=== PATIENT | male | born 1990 | race Caucasian/White ===

== ENCOUNTER 2020-01-10 11:52 | Outpatient (CLI) | payer SELFPAY ==
--- NOTE | 2020-01-10 13:03 | PC.NURSE ---
1205 Patient here for Covid pre op testing. Patient verified via name and date of . Full PPE in place to include goggles, gloves, gown and N95 mask. Specimen collected, labeled and taken to lab. Patient tolerated procedure well.
[2020-01-11 13:50] LABS: Coronavirus Lab Test PTC Negative
== END 2020-01-10 11:53 | disposition home or self-care (01) ==
LOC: LAB 11:59
PROVIDERS: PCP Electrodiagnostic Medicine; Visit Provider Emergency Medicine
DX: Z01.812 Encounter for preprocedural laboratory examination (principal)
CPT/HCPCS: 87635

== ENCOUNTER → 2020-11-02 18:31 | Outpatient (BNVA) | payer SELFPAY | PROVIDERS: PCP Electrodiagnostic Medicine; Visit Provider Nurse Practitioner | DX: J02.0 Streptococcal pharyngitis (principal) | CPT/HCPCS: 87880 ==

== ENCOUNTER → 2022-09-16 09:07 | Outpatient (BNVA) | payer BC, SELFPAY | PROVIDERS: PCP Family Medicine; Visit Provider Family Medicine | DX: Z51.81 Encounter for therapeutic drug level monitoring (principal); R73.09 Other abnormal glucose; Z13.220 Encounter for screening for lipoid disorders; R53.81 Other malaise; R53.83 Other fatigue; E11.9 Type 2 diabetes mellitus without complications; I10 Essential (primary) hypertension | CPT/HCPCS: 80053; 80061; 83036; 83721; 84443; 85025 ==

== ENCOUNTER → 2024-08-08 17:34 | Outpatient (BNVA) | payer BC, SELFPAY | PROVIDERS: PCP Family Medicine; Visit Provider Emergency Medicine | DX: R11.10 Vomiting, unspecified (principal); R11.0 Nausea; J98.8 Other specified respiratory disorders; B97.89 Other viral agents as the cause of diseases classified elsewhere; R11.2 Nausea with vomiting, unspecified | CPT/HCPCS: 87400 ==